=== PATIENT | female | born 2000 | race Two or more races ===

== ENCOUNTER 2020-09-06 15:11 | Emergency (ER) | payer OTHER ==
[~2020-09-06] VITALS: Ht 154.9 cm; Wt 89.0 kg
[2020-09-06 15:31] VITALS: BP 108/76
--- NOTE | 2020-09-06 16:15 | NUR ---
PT STATES SHE FEELS LIKE SHE CANNOT GET ENOUGH AIR ESPECIALLY AT NIGHT
== END 2020-09-06 17:08 | disposition home or self-care (01) ==
LOC: ED 17:00
DX: O99.512 Diseases of the respiratory system complicating pregnancy, second trimester (principal); J06.9 Acute upper respiratory infection, unspecified; Z3A.26 26 weeks gestation of pregnancy
CPT/HCPCS: 71045; 99283